=== PATIENT | male | born 1985 | race African-American/Black ===

== ENCOUNTER 2023-01-13 22:31 | Emergency (ER) | payer OTHER ==
[~2023-01-13] VITALS: Ht 175.3 cm; Wt 72.6 kg
[2023-01-13 23:18] VITALS: BP 144/73; TEMP 98.1; O2SAT 98
[2023-01-13] MEDS ORDERED: FLUORESCEIN SODIUM OPHTH 1 EA STRIP OP ONE (23:30)
== END 2023-01-13 23:50 | disposition home or self-care (01) ==
LOC: ER 22:34
DX: S06.0X0A Concussion without loss of consciousness, initial encounter (principal); W22.8XXA Striking against or struck by other objects, initial encounter; Y93.67 Activity, basketball; Y92.89 Other specified places as the place of occurrence of the external cause; Y99.8 Other external cause status